=== PATIENT | female | born 1980 | race Caucasian/White ===

== ENCOUNTER → 2019-06-24 11:43 | Outpatient (CLI) | payer OTHER, SELFPAY ==
[2016-09-13 15:37] VITALS: BMI 23.2
[2019-06-28 12:32] LABS: Almond 5.73 kU/L (Class IV); Apple 3.55 kU/L (Class III); Barley, Whole Grain 6.09 kU/L (Class IV); Beef <0.10 kU/L (Class 0); Brazil Nut 2.93 kU/L (Class III); Carrot 5.58 kU/L (Class IV); Cashew 2.48 kU/L (Class III); Chicken <0.10 kU/L (Class 0); Clam 3.76 kU/L (Class III); Codfish <0.10 kU/L (Class 0); Crab 1.81 kU/L (Class III); Egg, White <0.10 kU/L (Class 0); Egg, Whole <0.10 kU/L (Class 0); Egg, Yolk <0.10 kU/L (Class 0); Garlic 6.85 kU/L (Class IV); Gluten 1.41 kU/L (Class III); Hazelnut/Filbert 6.33 kU/L (Class IV); Lobster 0.39 kU/L (Class I); Milk (Cow) <0.10 kU/L (Class 0); Oat 5.57 kU/L (Class IV); Onion 6.73 kU/L (Class IV); Orange 5.15 kU/L (Class IV); Pea 3.77 kU/L (Class III); Pecan 0.37 kU/L (Class I); Pork <0.10 kU/L (Class 0); Potato, White 8.12 kU/L (Class IV); Rice 7.58 kU/L (Class IV); Salmon <0.10 kU/L (Class 0); Shrimp 0.44 kU/L (Class I); Soybean 5.46 kU/L (Class IV); Tomato 7.43 kU/L (Class IV); Tuna <0.10 kU/L (Class 0); Yeast <0.10 kU/L (Class 0)
[2019-06-28 12:41] LABS: Peanut 8.27 kU/L (Class IV); Turkey <0.10 kU/L (Class 0)
[2019-06-28 12:42] LABS: Immunoglobulin E 122 IU/mL (6-495)
[2019-06-28 15:33] LABS: Alternaria tenuis 0.56 kU/L (Class II); Ash, White 6.89 kU/L (Class IV); Aspergillus fumigatus <0.10 kU/L (Class 0); Bermuda Grass 6.57 kU/L (Class IV); Birch 3.21 kU/L (Class III); Black Walnut 6.43 kU/L (Class IV); Cat Hair / Dander,Stand 0.26 kU/L (Class 0/I); Cedar, Mountain 4.47 kU/L (Class IV); Cladosporium herbarum <0.10 kU/L (Class 0); Cockroach, American 3.67 kU/L (Class III); Cottonwood 6.42 kU/L (Class IV); D farinae Mite 5.88 kU/L (Class IV); Dog Epithelia 0.33 kU/L (Class I); Elm, American White 6.52 kU/L (Class IV); Immunoglobulin E 126 IU/mL (6-495); Maple/Box Elder 6.54 kU/L (Class IV); Mulberry, White 4.32 kU/L (Class IV); Oak, White 6.22 kU/L (Class IV); Penicillium Notatum <0.10 kU/L (Class 0); Pigweed, Rough 5.44 kU/L (Class IV); Ragweed, Short/Common 7.63 kU/L (Class IV); Russian Thistle 5.94 kU/L (Class IV); Sheep Sorrel 5.93 kU/L (Class IV); Sycamore, American 6.53 kU/L (Class IV); Timothy Grass 7.46 kU/L (Class IV)
[2019-06-28 15:55] LABS: Mouse Urine <0.10 kU/L (Class 0)
== END ==
PROVIDERS: Referring Provider Otolaryngology Otolaryngology/Facial Plastic Surgery; Visit Provider Otolaryngology Otolaryngology/Facial Plastic Surgery
DX: T78.40XA Allergy, unspecified, initial encounter (principal)
CPT/HCPCS: 36415; 82785; 86003